=== PATIENT | male | born 1945 | race Caucasian/White ===

== ENCOUNTER 2023-06-11 02:55 | Emergency (ER) | payer MEDICARE, BC, SELFPAY ==
[2023-06-11] VITALS (56 sets, daily range): BP systolic 99–169; BP diastolic 59–116; PULSE 56–78; RESP 19–46; TEMP 36.6–39.3; O2SAT 91–99; BMI 29.3
--- NOTE | 2023-06-11 03:01 | ECG_ITS ---
[facility] Test Date: 2023-06-11 Pat Name: GAY GUZMAN Department: Room: - Gender: Male Equipment Tech: : 1945 Requested By: [id number] Order Number: [id number] Reading MD: RUTH ULRICH Measurements Intervals [place] Rate: 74 P: -97388 [place]: -50608 QRS: -58 QRSD: 142 T: 114 QT: 434 QTc: 461 Interpretive Statements 85390 Electronic ventricular pacemaker 9120 atypical ECG Compared to ECG 06/25/2017 17:15:46 Sinus rhythm no longer present First degree AV block no longer present Electronically Signed On 06-11-2023 6:53:06 EST by RUTH ULRICH
--- NOTE | 2023-06-11 03:01 | XR_ITS ---
The [address] [address] Patient Name: GAY GUZMAN MRN: [id number] date: 1945 Sex: M Assigned Patient Location: ER Current Patient Location: ER Accession/Order Number: [id number] Exam Date: 06/11/2023 03:25 Report Date: 06/11/2023 03:40 At the request of: SETH MENESES Procedure: XR chest 1V XR chest 1V 06/11/2023 3:25 AM EST CLINICAL INDICATION: Short of breath COMPARISON: None. TECHNIQUE: Portable semiupright AP view of the chest. FINDINGS: Left subclavian approach AICD. The cardiac silhouette appears mildly enlarged. Pulmonary vasculature appears prominent with indistinct margins. No focal parenchymal opacities. No pneumothorax or pleural effusion. No displaced rib fractures. Osseous structures demonstrate degenerative changes. Soft tissues are grossly normal. XR/XR chest 1V IMPRESSION: Constellation of findings just congestive heart failure with mild pulmonary interstitial edema. Infectious etiology can also be considered in the right clinical setting. Electronically authenticated by: ROBI JAEGER Date: 06/11/2023 03:40
--- NOTE | 2023-06-11 03:04 | ED.URI1 ---
Documented by User: Jori Yates MD 06/12/23 19:20 HPI - URI/Sore Throat General Chief Complaint: Upper Respiratory Infection Stated Complaint: VOMTING Time Seen by Provider: 06/11/23 03:01 Source: patient Limitations: no limitations History of Present Illness HPI Narrative: ill for this past week. now is very weak. States he tried to get up and was too weak. He has fever and is short of breath. No complaint of chest pain. No complaint of nausea or vomiting. Is on Eliquis but doesn't know why Related Data Home Medications Medication Instructions Recorded Confirmed apixaban 5 mg tablet (Eliquis) mg 06/11/23 atorvastatin 80 mg tablet mg 06/11/23 flecainide 150 mg tablet mg 06/11/23 glimepiride 2 mg tablet mg 06/11/23 losartan 100 mg tablet mg 06/11/23 metoprolol tartrate 100 mg tablet mg 06/11/23 pioglitazone 30 mg tablet mg 06/11/23 Allergies Allergy/AdvReac Type Severity Reaction Status Date / Time No Known Drug Allergies Allergy Verified 06/11/23 03:01 Review of Systems ROS Status of ROS 10 or more systems reviewed and unremarkable except as noted in history and below Exam Constitutional Vital Signs, click to edit/add: Last Vital Signs Temp 98 F 06/11/23 10:12 Pulse 60 06/11/23 10:00 Resp 19 06/11/23 10:00 BP 123/69 06/11/23 10:00 Pulse Ox 99 06/11/23 10:00 O2 Del Method Nasal Cannula 06/11/23 03:25 O2 Flow Rate 6 06/11/23 03:25 Common normals: average body habitus, oriented x3, no limitations, healthy appearing, alert and well nourished General appearance: in distress (mild distress-resp) HENCA Common normals: normocephalic and head/scalp atraumatic Eye Common normals: PERRL and EOMs intact bilaterally Chest Common normals: inspection of chest normal and palpation of chest normal Respiratory Other: tachypnea. scattered mild wheeze Cardio Common normals: regular rate, regular rhythm, S1 normal heart sound and S2 normal heart sound GI Common normals: Normal to inspection, nondistended, normoactive bowel sounds present, soft to palpation and non-tender Extremity Common normals: normal to inspection and full ROM Neuro Common normals: oriented x3, CN's II-XII intact bilaterally, moves all extremities and no focal motor deficits Psych Appearance: grossly normal Course Vital Signs Vital signs: Vital Signs Temperature 102.7 F H 06/11/23 02:57 Pulse Rate 76 06/11/23 02:57 Respiratory Rate 28 H 06/11/23 02:57 Blood Pressure 169/82 H 06/11/23 02:57 Pulse Oximetry 94 L 06/11/23 02:57 Oxygen Delivery Method Nasal Cannula 06/11/23 02:57 Oxygen Delivery Flow Rate 6 06/11/23 02:57 Temperature 98 F 06/11/23 10:12 Pulse Rate 60 06/11/23 10:00 Respiratory Rate 19 06/11/23 10:00 Blood Pressure 123/69 06/11/23 10:00 Pulse Oximetry 99 06/11/23 10:00 Oxygen Delivery Method Nasal Cannula 06/11/23 03:25 Oxygen Delivery Flow Rate 6 06/11/23 03:25 MDM - URI/Sore Throat MDM Narrative Medical decision making narrative: patient ill the past 3 days. Became progressively weak and no longer able to walk. not able to motivate . Arrives short of breath with pulse ox 84% RA. unaware of fever 102.7. Chest with few scattered wheezes. Treated with solumedrol and albuterol. No history of COPD. placed on 6L NC 02 and pulse ox 94%. Swab positive for influenza A. cxray with pulmonary edema. Troponin trending up. He is a poor historian. Has no idea why he is on Eliquis. Blood cultures ordered. Sepsis IV hydration initiated but d/rita as he was found to be in failure. Rocephin ordered. Due to his troponin will plan transfer where cardiology is available. Meri Arias contacted and apparently Dr Krishnan his grove worker no longer goes to that hospital. will place a call to [facility] for Dr Krishnan Lab Data Labs: Lab Results 06/11/23 06/11/23 06/11/23 Range/Units 03:00 03:04 05:02 WBC 8.6 (4.0-11.0) 10^3/uL RBC 4.40 L (4.70-6.10) 10^6/uL Hgb 13.7 L (14.0-18.0) g/dL Hct 42.5 (42.0-54.0) % MCV 96.6 H (80.0-94.0) fL MCH 31.1 (25.9-34.0) pg MCHC 32.2 (29.9-35.2) g/dL RDW 14.9 (11.0-15.0) % Plt Count 141 L (150-450) 10^3/uL MPV 10.8 (9.5-13.5) fL Neut % (Auto) 80.2 H (43.0-75.0) % Lymph % (Auto) 10.7 L (20.5-60.0) % [place] % (Auto) 7.8 (1.7-12.0) % Eos % (Auto) 0.0 L (0.9-7.0) % Baso % (Auto) 0.5 (0.2-2.0) % Neut # (Auto) 6.9 H (1.4-6.5) 10^3/uL Lymph # (Auto) 0.9 L (1.2-3.8) 10^3/uL [place] # (Auto) 0.7 (0.3-0.8) 10^3/uL Eos # (Auto) 0.0 (0.0-0.7) 10^3/uL Baso # (Auto) 0.0 (0.0-0.1) 10^3/uL Abs Immat Gran (auto) 0.07 H (0.00-0.03) 10^3/uL Imm/Tot Granulo (auto) 0.8 H (0.0-0.5) % Sodium 140 (136-145) mmol/L Potassium 3.7 (3.5-5.1) mmol/L Chloride 107 (98-107) mmol/L Carbon Dioxide 21.7 (21.0-32.0) mmol/L Anion Gap 15.0 BUN 33.0 H (7.0-18.0) mg/dL Creatinine 2.13 H (0.70-1.30) mg/dL Est GFR ( Amer) 37 L (>=60) Est GFR (Non-Af Amer) 30 L (>=60) BUN/Creatinine Ratio 15.5 Glucose 184 H (74-106) mg/dL Lactate 2.1 H (0.4-2.0) mmol/L Calcium 8.5 (8.5-10.1) mg/dL Total Bilirubin 0.8 (0.2-1.0) mg/dL AST 52 H (15-37) U/L ALT 24 (16-63) U/L Alkaline Phosphatase 96 (46-116) U/L Troponin I High Sens 64.2 91.1 H* (4.0-76.1) pg/mL NT-Pro-B Natriuret Pep 5799.0 H* (<=1800.0) pg/mL Total Protein 6.4 (6.4-8.2) g/dL Albumin 2.5 L (3.4-5.0) g/dL Globulin 3.9 g/dL Albumin/Globulin Ratio 0.6 Procalcitonin 0.15 (0.00-0.50) ng/mL Adenovirus (PCR) Not detected (NOT DETECTE) C. pneumoniae DNA (PCR) Not detected (NOT DETECTE) Coronavirus Type OC43 Not detected (NOT DETECTE) Coronavirus Type HKU1 Not detected (NOT DETECTE) Coronavirus Type 229E Not detected (NOT DETECTE) Coronavirus Type NL63 Not detected (NOT DETECTE) Human Metapneumovir PCR Not detected (NOT DETECTE) Influenza A (H3) PCR Detected M. pneumoniae (PCR) Not detected (NOT DETECTE) Parainfluenza PCR Not detected (NOT DETECTE) Parainfluenza 2 (PCR) Not detected (NOT DETECTE) Parainfluenza 3 (PCR) Not detected (NOT DETECTE) Parainfluenza 4 (PCR) Not detected (NOT DETECTE) RSV (RT-PCR) Not detected (NOT DETECTE) Entero/Rhino (PCR) Not detected (NOT DETECTE) SARS-CoV-2 (PCR) Not detected (NOT DETECTE) Bordetella pertussis (PCR) Not detected (NOT DETECTE) B parapertussis DNA PCR Not detected (NOT DETECTE) Influenza Type B (PCR) Not detected (NOT DETECTE) 06/11/23 Range/Units 06:51 WBC (4.0-11.0) 10^3/uL RBC (4.70-6.10) 10^6/uL Hgb (14.0-18.0) g/dL Hct (42.0-54.0) % MCV (80.0-94.0) fL MCH (25.9-34.0) pg MCHC (29.9-35.2) g/dL RDW (11.0-15.0) % Plt Count (150-450) 10^3/uL MPV (9.5-13.5) fL Neut % (Auto) (43.0-75.0) % Lymph % (Auto) (20.5-60.0) % [place] % (Auto) (1.7-12.0) % Eos % (Auto) (0.9-7.0) % Baso % (Auto) (0.2-2.0) % Neut # (Auto) (1.4-6.5) 10^3/uL Lymph # (Auto) (1.2-3.8) 10^3/uL [place] # (Auto) (0.3-0.8) 10^3/uL Eos # (Auto) (0.0-0.7) 10^3/uL Baso # (Auto) (0.0-0.1) 10^3/uL Abs Immat Gran (auto) (0.00-0.03) 10^3/uL Imm/Tot Granulo (auto) (0.0-0.5) % Sodium (136-145) mmol/L Potassium (3.5-5.1) mmol/L Chloride (98-107) mmol/L Carbon Dioxide (21.0-32.0) mmol/L Anion Gap BUN (7.0-18.0) mg/dL Creatinine (0.70-1.30) mg/dL Est GFR ( Amer) (>=60) Est GFR (Non-Af Amer) (>=60) BUN/Creatinine Ratio Glucose (74-106) mg/dL Lactate 1.0 (0.4-2.0) mmol/L Calcium (8.5-10.1) mg/dL Total Bilirubin (0.2-1.0) mg/dL AST (15-37) U/L ALT (16-63) U/L Alkaline Phosphatase (46-116) U/L Troponin I High Sens (4.0-76.1) pg/mL NT-Pro-B Natriuret Pep (<=1800.0) pg/mL Total Protein (6.4-8.2) g/dL Albumin (3.4-5.0) g/dL Globulin g/dL Albumin/Globulin Ratio Procalcitonin (0.00-0.50) ng/mL Adenovirus (PCR) (NOT DETECTE) C. pneumoniae DNA (PCR) (NOT DETECTE) Coronavirus Type OC43 (NOT DETECTE) Coronavirus Type HKU1 (NOT DETECTE) Coronavirus Type 229E (NOT DETECTE) Coronavirus Type NL63 (NOT DETECTE) Human Metapneumovir PCR (NOT DETECTE) Influenza A (H3) PCR M. pneumoniae (PCR) (NOT DETECTE) Parainfluenza PCR (NOT DETECTE) Parainfluenza 2 (PCR) (NOT DETECTE) Parainfluenza 3 (PCR) (NOT DETECTE) Parainfluenza 4 (PCR) (NOT DETECTE) RSV (RT-PCR) (NOT DETECTE) Entero/Rhino (PCR) (NOT DETECTE) SARS-CoV-2 (PCR) (NOT DETECTE) Bordetella pertussis (PCR) (NOT DETECTE) B parapertussis DNA PCR (NOT DETECTE) Influenza Type B (PCR) (NOT DETECTE) Imaging Data Chest x-ray: Radiologist's impression: ITS Impressions Chest X-Ray 06/11/23 03:01 IMPRESSION: Constellation of findings just congestive heart failure with mild pulmonary interstitial edema. Infectious etiology can also be considered in the right clinical setting. Electronically authenticated by: ROBI JAEGER Date: 06/11/2023 03:40 Discharge Plan Discharge Chief Complaint: Upper Respiratory Infection Clinical Impression: Hypoxemia, Pulmonary edema, Influenza Patient Disposition: [facility] Time of Disposition Decision: 07:26 Discharge location: [facility] Condition: Fair Mode of Transportation: EMS Discharge Date/Time: 06/11/23 10:26 Documented by User: Dale Bardales MD 06/11/23 07:29 HPI - URI/Sore Throat General Chief Complaint: Upper Respiratory Infection Stated Complaint: VOMTING Time Seen by Provider: 06/11/23 03:01 Related Data Home Medications Medication Instructions Recorded Confirmed apixaban 5 mg tablet (Eliquis) mg 06/11/23 atorvastatin 80 mg tablet mg 06/11/23 flecainide 150 mg tablet mg 06/11/23 glimepiride 2 mg tablet mg 06/11/23 losartan 100 mg tablet mg 06/11/23 metoprolol tartrate 100 mg tablet mg 06/11/23 pioglitazone 30 mg tablet mg 06/11/23 Allergies Allergy/AdvReac Type Severity Reaction Status Date / Time No Known Drug Allergies Allergy Verified 06/11/23 03:01 Exam Constitutional Vital Signs, click to edit/add: Last Vital Signs Temp 98 F 06/11/23 10:12 Pulse 60 06/11/23 10:00 Resp 19 06/11/23 10:00 BP 123/69 06/11/23 10:00 Pulse Ox 99 06/11/23 10:00 O2 Del Method Nasal Cannula 06/11/23 03:25 O2 Flow Rate 6 06/11/23 03:25 Course Vital Signs Vital signs: Vital Signs Temperature 102.7 F H 06/11/23 02:57 Pulse Rate 76 06/11/23 02:57 Respiratory Rate 28 H 06/11/23 02:57 Blood Pressure 169/82 H 06/11/23 02:57 Pulse Oximetry 94 L 06/11/23 02:57 Oxygen Delivery Method Nasal Cannula 06/11/23 02:57 Oxygen Delivery Flow Rate 6 06/11/23 02:57 Temperature 98 F 06/11/23 10:12 Pulse Rate 60 06/11/23 10:00 Respiratory Rate 19 06/11/23 10:00 Blood Pressure 123/69 06/11/23 10:00 Pulse Oximetry 99 06/11/23 10:00 Oxygen Delivery Method Nasal Cannula 06/11/23 03:25 Oxygen Delivery Flow Rate 6 06/11/23 03:25 MDM - URI/Sore Throat MDM Narrative Medical decision making narrative: patient ill the past 3 days. Became progressively weak and no longer able to walk. not able to motivate . Arrives short of breath with pulse ox 84% RA. unaware of fever 102.7. Chest with few scattered wheezes. Treated with solumedrol and albuterol. No history of COPD. placed on 6L NC 02 and pulse ox 94%. Swab positive for influenza A. cxray with pulmonary edema. Troponin trending up. He is a poor historian. Has no idea why he is on Eliquis. Blood cultures ordered. Sepsis IV hydration initiated but d/rita as he was found to be in failure. Rocephin ordered. Due to his troponin will plan transfer where cardiology is available. Simonjasper Juana contacted and apparently Dr Krishnan his grove worker no longer goes to that hospital. will place a call to [facility] for Dr Krishnan JStevie 7:30am I have spoken to Dr. Richardson at [facility] and she accepts the patient. The patient is already received IV Lasix and is stable and agreeable for transfer. Findings were discussed with the patient. Differential Diagnosis Differential diagnosis: Likely upper respiratory infection, influenza and other (Covid, congestive heart failure, pulmonary edema) Lab Data Attestation: I reviewed the patient's lab results. Labs: Lab Results 06/11/23 06/11/23 06/11/23 Range/Units 03:00 03:04 05:02 WBC 8.6 (4.0-11.0) 10^3/uL RBC 4.40 L (4.70-6.10) 10^6/uL Hgb 13.7 L (14.0-18.0) g/dL Hct 42.5 (42.0-54.0) % MCV 96.6 H (80.0-94.0) fL MCH 31.1 (25.9-34.0) pg MCHC 32.2 (29.9-35.2) g/dL RDW 14.9 (11.0-15.0) % Plt Count 141 L (150-450) 10^3/uL MPV 10.8 (9.5-13.5) fL Neut % (Auto) 80.2 H (43.0-75.0) % Lymph % (Auto) 10.7 L (20.5-60.0) % [place] % (Auto) 7.8 (1.7-12.0) % Eos % (Auto) 0.0 L (0.9-7.0) % Baso % (Auto) 0.5 (0.2-2.0) % Neut # (Auto) 6.9 H (1.4-6.5) 10^3/uL Lymph # (Auto) 0.9 L (1.2-3.8) 10^3/uL [place] # (Auto) 0.7 (0.3-0.8) 10^3/uL Eos # (Auto) 0.0 (0.0-0.7) 10^3/uL Baso # (Auto) 0.0 (0.0-0.1) 10^3/uL Abs Immat Gran (auto) 0.07 H (0.00-0.03) 10^3/uL Imm/Tot Granulo (auto) 0.8 H (0.0-0.5) % Sodium 140 (136-145) mmol/L Potassium 3.7 (3.5-5.1) mmol/L Chloride 107 (98-107) mmol/L Carbon Dioxide 21.7 (21.0-32.0) mmol/L Anion Gap 15.0 BUN 33.0 H (7.0-18.0) mg/dL Creatinine 2.13 H (0.70-1.30) mg/dL Est GFR ( Amer) 37 L (>=60) Est GFR (Non-Af Amer) 30 L (>=60) BUN/Creatinine Ratio 15.5 Glucose 184 H (74-106) mg/dL Lactate 2.1 H (0.4-2.0) mmol/L Calcium 8.5 (8.5-10.1) mg/dL Total Bilirubin 0.8 (0.2-1.0) mg/dL AST 52 H (15-37) U/L ALT 24 (16-63) U/L Alkaline Phosphatase 96 (46-116) U/L Troponin I High Sens 64.2 91.1 H* (4.0-76.1) pg/mL NT-Pro-B Natriuret Pep 5799.0 H* (<=1800.0) pg/mL Total Protein 6.4 (6.4-8.2) g/dL Albumin 2.5 L (3.4-5.0) g/dL Globulin 3.9 g/dL Albumin/Globulin Ratio 0.6 Procalcitonin 0.15 (0.00-0.50) ng/mL Adenovirus (PCR) Not detected (NOT DETECTE) C. pneumoniae DNA (PCR) Not detected (NOT DETECTE) Coronavirus Type OC43 Not detected (NOT DETECTE) Coronavirus Type HKU1 Not detected (NOT DETECTE) Coronavirus Type 229E Not detected (NOT DETECTE) Coronavirus Type NL63 Not detected (NOT DETECTE) Human Metapneumovir PCR Not detected (NOT DETECTE) Influenza A (H3) PCR Detected M. pneumoniae (PCR) Not detected (NOT DETECTE) Parainfluenza PCR Not detected (NOT DETECTE) Parainfluenza 2 (PCR) Not detected (NOT DETECTE) Parainfluenza 3 (PCR) Not detected (NOT DETECTE) Parainfluenza 4 (PCR) Not detected (NOT DETECTE) RSV (RT-PCR) Not detected (NOT DETECTE) Entero/Rhino (PCR) Not detected (NOT DETECTE) SARS-CoV-2 (PCR) Not detected (NOT DETECTE) Bordetella pertussis (PCR) Not detected (NOT DETECTE) B parapertussis DNA PCR Not detected (NOT DETECTE) Influenza Type B (PCR) Not detected (NOT DETECTE) 06/11/23 Range/Units 06:51 WBC (4.0-11.0) 10^3/uL RBC (4.70-6.10) 10^6/uL Hgb (14.0-18.0) g/dL Hct (42.0-54.0) % MCV (80.0-94.0) fL MCH (25.9-34.0) pg MCHC (29.9-35.2) g/dL RDW (11.0-15.0) % Plt Count (150-450) 10^3/uL MPV (9.5-13.5) fL Neut % (Auto) (43.0-75.0) % Lymph % (Auto) (20.5-60.0) % [place] % (Auto) (1.7-12.0) % Eos % (Auto) (0.9-7.0) % Baso % (Auto) (0.2-2.0) % Neut # (Auto) (1.4-6.5) 10^3/uL Lymph # (Auto) (1.2-3.8) 10^3/uL [place] # (Auto) (0.3-0.8) 10^3/uL Eos # (Auto) (0.0-0.7) 10^3/uL Baso # (Auto) (0.0-0.1) 10^3/uL Abs Immat Gran (auto) (0.00-0.03) 10^3/uL Imm/Tot Granulo (auto) (0.0-0.5) % Sodium (136-145) mmol/L Potassium (3.5-5.1) mmol/L Chloride (98-107) mmol/L Carbon Dioxide (21.0-32.0) mmol/L Anion Gap BUN (7.0-18.0) mg/dL Creatinine (0.70-1.30) mg/dL Est GFR ( Amer) (>=60) Est GFR (Non-Af Amer) (>=60) BUN/Creatinine Ratio Glucose (74-106) mg/dL Lactate 1.0 (0.4-2.0) mmol/L Calcium (8.5-10.1) mg/dL Total Bilirubin (0.2-1.0) mg/dL AST (15-37) U/L ALT (16-63) U/L Alkaline Phosphatase (46-116) U/L Troponin I High Sens (4.0-76.1) pg/mL NT-Pro-B Natriuret Pep (<=1800.0) pg/mL Total Protein (6.4-8.2) g/dL Albumin (3.4-5.0) g/dL Globulin g/dL Albumin/Globulin Ratio Procalcitonin (0.00-0.50) ng/mL Adenovirus (PCR) (NOT DETECTE) C. pneumoniae DNA (PCR) (NOT DETECTE) Coronavirus Type OC43 (NOT DETECTE) Coronavirus Type HKU1 (NOT DETECTE) Coronavirus Type 229E (NOT DETECTE) Coronavirus Type NL63 (NOT DETECTE) Human Metapneumovir PCR (NOT DETECTE) Influenza A (H3) PCR M. pneumoniae (PCR) (NOT DETECTE) Parainfluenza PCR (NOT DETECTE) Parainfluenza 2 (PCR) (NOT DETECTE) Parainfluenza 3 (PCR) (NOT DETECTE) Parainfluenza 4 (PCR) (NOT DETECTE) RSV (RT-PCR) (NOT DETECTE) Entero/Rhino (PCR) (NOT DETECTE) SARS-CoV-2 (PCR) (NOT DETECTE) Bordetella pertussis (PCR) (NOT DETECTE) B parapertussis DNA PCR (NOT DETECTE) Influenza Type B (PCR) (NOT DETECTE) Imaging Data Chest x-ray: Radiologist's impression: ITS Impressions Chest X-Ray 06/11/23 03:01 IMPRESSION: Constellation of findings just congestive heart failure with mild pulmonary interstitial edema. Infectious etiology can also be considered in the right clinical setting. Electronically authenticated by: ROBI JAEGER Date: 06/11/2023 03:40 Critical Care Time Critical Care Time Critical Care Time: Yes Total Critical Care Time: 35 Attestation: Due to the high probability of sudden and clinically significant deterioration in the patient's condition he/she required the highest level of my preparedness to intervene urgently I provided critical care time including documentation time, medication orders and management, reevaluation, vital sign assessment, ordering and reviewing of lab tests, ordering and reviewing of x-ray studies, and admission orders. Aggregate critical care time is 35 minutes including only time during which I was engaged in work directly related to his/her care and did not include time spent treating other patients simultaneously. Discharge Plan Discharge Chief Complaint: Upper Respiratory Infection Clinical Impression: Hypoxemia, Pulmonary edema, Influenza Patient Disposition: [facility] Time of Disposition Decision: 07:26 Discharge location: [facility] Condition: Fair Mode of Transportation: EMS Discharge Date/Time: 06/11/23 10:26
[2023-06-11] MEDS: METHYLPREDNISOLONE SOD SUCC PF 125 MG/2 ML VIAL IVP (03:13)
[2023-06-11] MEDS: 0.9 % SODIUM CHLORIDE 1,000 ML 999 ML IV (03:15)
[2023-06-11 03:21] LABS: Adenovirus NOT DETECTED (NOT DETECTE); Bordetella parapertussis NOT DETECTED (NOT DETECTE); Coronavirus 229E NOT DETECTED (NOT DETECTE); Coronavirus HKU1 NOT DETECTED (NOT DETECTE); Coronavirus NL63 NOT DETECTED (NOT DETECTE); Coronavirus OC43 NOT DETECTED (NOT DETECTE); Human Metapneumovirus NOT DETECTED (NOT DETECTE); Human Rhinovirus/Enterovirus NOT DETECTED (NOT DETECTE); Influenza B NOT DETECTED (NOT DETECTE); Mycoplasma pneumoniae NOT DETECTED (NOT DETECTE); Parainfluenza Virus 1 NOT DETECTED (NOT DETECTE); Parainfluenza Virus 2 NOT DETECTED (NOT DETECTE); Parainfluenza Virus 3 NOT DETECTED (NOT DETECTE); Parainfluenza Virus 4 NOT DETECTED (NOT DETECTE); Respiratory Syncytial Virus NOT DETECTED (NOT DETECTE); SARS-CoV-2 NOT DETECTED (NOT DETECTE)
[2023-06-11] MEDS: ALBUTEROL SULFATE 2.5 MG/3 ML VIAL NEB IH (03:22)
[2023-06-11 03:25] LABS: Basophils Percent Auto 0.5 % (0.2-2.0); Hematocrit 42.5 % (42.0-54.0); Hemoglobin 13.7 g/dL (14.0-18.0); Immature Granulocytes Abs Auto 0.07 10^3/uL (0.00-0.03); Immature Granulocytes Pct Auto 0.8 % (0.0-0.5); Lymphocytes Absolute Auto 0.9 10^3/uL (1.2-3.8); Lymphocytes Percent Auto 10.7 % (20.5-60.0); Mean Corpuscular HGB Conc 32.2 g/dL (29.9-35.2); Mean Corpuscular Hemoglobin 31.1 pg (25.9-34.0); Mean Corpuscular Volume 96.6 fL (80.0-94.0); Mean Platelet Volume 10.8 fL (9.5-13.5); Monocytes Absolute Auto 0.7 10^3/uL (0.3-0.8); Monocytes Percent Auto 7.8 % (1.7-12.0); Neutrophils Absolute Auto 6.9 10^3/uL (1.4-6.5); Neutrophils Percent Auto 80.2 % (43.0-75.0); Platelet Count 141 10^3/uL (150-450); Red Cell Distribution Width 14.9 % (11.0-15.0); White Blood Count 8.6 10^3/uL (4.0-11.0)
[2023-06-11] MEDS: ACETAMINOPHEN 500 MG TABLET 1000 MG PO (03:36)
[2023-06-11 03:42] LABS: Lactate/Lactic Acid 2.1 mmol/L (0.4-2.0)
[2023-06-11 03:51] LABS: Alanine Aminotransferase 24 U/L (16-63); Albumin Globulin Ratio 0.6; Albumin Level 2.5 g/dL (3.4-5.0); Alkaline Phosphatase 96 U/L (46-116); Aspartate Amino Transferase 52 U/L (15-37); BUN Creatinine Ratio 15.5; Bilirubin Total 0.8 mg/dL (0.2-1.0); Calcium 8.5 mg/dL (8.5-10.1); Carbon Dioxide 21.7 mmol/L (21.0-32.0); Chloride 107 mmol/L (98-107); Estimated GFR (African America 37 (>=60); Estimated GFR (Non-African Ame 30 (>=60); Globulin 3.9 g/dL; Glucose 184 mg/dL (74-106); Potassium 3.7 mmol/L (3.5-5.1); Sodium 140 mmol/L (136-145); Total Protein 6.4 g/dL (6.4-8.2); Troponin I High Sensitivity 64.2 pg/mL (4.0-76.1)
[2023-06-11 04:09] LABS: PROCALCITONIN 0.15 ng/mL (0.00-0.50)
[2023-06-11 04:11] LABS: Influenza A\\H3 DETECTED
[2023-06-11] MEDS: FUROSEMIDE 40 MG/4 ML VIAL IVP (04:17)
[2023-06-11 05:33] LABS: Troponin I High Sensitivity 91.1 pg/mL (4.0-76.1)
[2023-06-11] MEDS: CEFTRIAXONE 1,000 MG in 0.9 % SODIUM CHLORIDE 50 ML 100 MG IV (06:49)
== END 2023-06-11 10:26 | disposition short-term general hospital (02) ==
PROVIDERS: Internal Medicine; Emergency Provider Emergency Medicine; PCP Family Medicine
DX: I50.1 Left ventricular failure, unspecified (principal); J10.1 Influenza due to other identified influenza virus with other respiratory manifestations; R09.02 Hypoxemia; R50.9 Fever, unspecified; Z79.01 Long term (current) use of anticoagulants; Z79.899 Other long term (current) drug therapy; Z20.822 Contact with and (suspected) exposure to COVID-19
CPT/HCPCS: 0202U; 36415; 71045; 80053; 83605; 83880; 84145; 84484; 85025; 87040; 93005; 94640; 96365; 96375; 99285; J0696; J1940; J2930